=== PATIENT | male | born 1965 | race Caucasian/White ===

== ENCOUNTER 2019-11-08 20:19 | Emergency (ER) | payer MEDICARE, MEDICAID ==
[~2019-11-08] VITALS: Ht 177.8 cm; Wt 75.0 kg
[2019-11-08] MEDS ORDERED: TETanus/Pertussis (Acell)/Diphther VAC/PF (Tdap-Adult) 0.5ml syringe IMVAC ONE (20:45)
[2019-11-08] MEDS ORDERED: LIDOcaine 1% W/epiNEPHrine 1:200,000 10ml vial IJ ONE (20:45)
--- NOTE | 2019-11-08 21:28 | NUR ---
Provider is suturing the laceration at this time.
[2019-11-08 21:40] VITALS: BP 127/78
== END 2019-11-08 21:58 | disposition home or self-care (01) ==
LOC: ER 20:20
DX: S61.511A Laceration without foreign body of right wrist, initial encounter (principal); G89.29 Other chronic pain; Z88.1 Allergy status to other antibiotic agents; Z88.5 Allergy status to narcotic agent; Z88.8 Allergy status to other drugs, medicaments and biological substances; W01.10XA Fall on same level from slipping, tripping and stumbling with subsequent striking against unspecified object, initial encounter; Y93.89 Activity, other specified; Y92.89 Other specified places as the place of occurrence of the external cause; Y99.8 Other external cause status; Z98.890 Other specified postprocedural states
CPT/HCPCS: 12001; 73100; 90471; 90715; 99283

== ENCOUNTER 2019-11-19 16:19 | Emergency (ER) | payer MEDICARE, MEDICAID ==
[~2019-11-19] VITALS: Ht 177.8 cm; Wt 75.0 kg
== END 2019-11-19 17:25 | disposition home or self-care (01) ==
LOC: ER 16:19
DX: S61.511D Laceration without foreign body of right wrist, subsequent encounter (principal); G89.29 Other chronic pain; Z88.1 Allergy status to other antibiotic agents; Z88.5 Allergy status to narcotic agent; Z88.8 Allergy status to other drugs, medicaments and biological substances; X58.XXXD Exposure to other specified factors, subsequent encounter
CPT/HCPCS: 99281